=== PATIENT | male | born 1980 | race Caucasian/White ===

== ENCOUNTER 2019-10-13 17:02 | Emergency (ER) | payer OTHER ==
[~2019-10-13] VITALS: Ht 172.7 cm; Wt 71.7 kg
--- NOTE | 2019-10-13 17:30 | NUR ---
patient came in to the er c/o laceration/avulsion base of 5th digit right hand hit concrete when he fell down playing in back yard. Ambulatory with steady gait. On room air, breathing evenly and unlabored. connected to the monitor and pulse ox. kept comfortable, will continue to monitor accordingly.
[2019-10-13] MEDS ORDERED: ONDANSETRON 4 MG TAB.RAPDIS SL ONE (18:00)
[2019-10-13] MEDS ORDERED: HYDROCODONE/APAP 5/325MG 1 EACH TABLET PO ONE (18:00)
[2019-10-13] MEDS ORDERED: TDAP [DIPH/PERTUSSIS/TET] 0.5 ML VIAL IM ONE ×2 (18:00→18:04)
[2019-10-13] MEDS ORDERED: HYDROCODONE/APAP 5/325MG 1 EACH TABLET ONE (18:03)
[2019-10-13] MEDS ORDERED: ONDANSETRON 4 MG TAB.RAPDIS ONE (18:04)
[2019-10-13] MEDS ORDERED: LIDOCAINE 1% INJ 50 ML MDV IJ ONE (19:10)
--- NOTE | 2019-10-13 19:17 | NUR ---
joel at bedside for lac suture
[2019-10-13 20:21] VITALS: BP 147/89
--- NOTE | 2019-10-13 20:21 | NUR ---
Patient discharged to home in stable condition. Written and verbal after care instructions given. Patient verbalizes understanding of instruction.
== END 2019-10-13 20:21 | disposition home or self-care (01) ==
LOC: ER 17:02
DX: S61.411A Laceration without foreign body of right hand, initial encounter (principal); W18.39XA Other fall on same level, initial encounter; Y93.89 Activity, other specified; Y92.89 Other specified places as the place of occurrence of the external cause; Y99.8 Other external cause status
CPT/HCPCS: 12002; 73130; 90471; 90715; 99283; J3490; Q0162